=== PATIENT | female | born 1955 | race Caucasian/White ===

== ENCOUNTER → 2017-04-24 16:44 | Outpatient (CLI) | payer BC | END | disposition home or self-care (01) | LOC: D.MAMMO 16:15 | DX: Z12.31 Encounter for screening mammogram for malignant neoplasm of breast (principal) ==

== ENCOUNTER 2018-02-12 07:10 | Outpatient (CLI) | payer BC ==
[~2018-02-12] VITALS: Ht 152.4 cm; Wt 55.5 kg
--- NOTE | ~2018-02-12 | HEMODYNAMI ---
PATIENT:DAVID BYRD MEDICAL RECORD: [id number] : 57 LOCATION:D.CAT ADMISSION DATE: 02/12/18 Generatedon:02/12/20189:51 Patient name: DAVID BYRD Patient #: [id number] SSN: : 1955 Date of study: 02/12/2018 Page: Of Hemodynamic Procedure Report Patient Data Patient Demographics Procedure consent was obtained First Name: DAVID Gender: Female Last Name: CARSON : 1955 [facility] Initial: L Age: 62 year(s) Patient #: [id number] Race: Unknown Additional ID: [id number] Contact details [address]: [address] [place] [address] [place] State: [place] City: [place] Zip code: [address] Past Medical History Allergies Allergen Reaction Date Comments Reported Other 02/12/2018 Erythromycin,PCN,Sulfa, allergy Benadryl, Macrobid Admission Admission Data Admission Date: 02/12/2018 Admission Time: 7:10 Admit Source: Other Lab Results Lab Result Date: 02/12/2018 Lab Result Time: 7:35 Biochemistry Name Units Result Min Max BUN mg/dl 16 --(---*)-- 7 18 Creatinine mg/dl 0.9 --(-*--)-- 0.6 1.3 CBC Name Units Result Min Max Hematocrit % 41.7 -*(----)-- 42 54 Hemoglobin g/dl 13.8 --(*---)-- 13.5 17.5 Procedure Procedure Types Cath Procedure Diagnostic Procedure LHC LHC w/Coronaries Procedure Description Procedure Date Procedure Date: 02/12/2018 Procedure Start Time: 9:40 Procedure End Time: 9:49 Procedure Staff Name Function Corby Brand MD Performing Physician Elbert Patel RT Monitor Jihan Ruiz RT Scrub Maxim Patton RN Nurse Procedure Data Cath Procedure Fluoroscopy Diagnostic fluoroscopy Total fluoroscopy Time: 0.5 time: 0.5 min min Diagnostic fluoroscopy Total fluoroscopy dose: 67 dose: 67 mGy mGy Contrast Material Contrast Material Type Amount (ml) Isovue 300 19 Entry Location Entry Primary Successful Side Size Upsize Upsize Entry Closure Stanley ccessful Closure Location (Fr) 1 (Fr) 2 (Fr) Remarks Device Remarks Radial Right 6 Fr Mechanical artery Short Compression Estimated blood loss: 5 ml Diagnostic catheters Device Type Used For End Catheter Placement DIAGNOSTIC [place] 110cm 5 Procedure Fr catheter ([id number]) Procedure Complications No complications Procedure Medications Medication Administration Route Dosage Oxygen etCO2 Nasal cannula 2 l/min Heparin Flush Bag added to field 2 bags (1000units/500ml NS) 0.9% NaCl I.V. 100 ml/hr Radial Cocktail added to field 1 syringe (Verapomil 2mg/Nitro 400mcg/Heparin 1500units) Fentanyl I.V. 50 mcg Versed I.V. 1 mg Fentanyl I.V. 50 mcg Versed I.V. 1 mg Fentanyl I.V. 50 mcg Radial Cocktail I.A. 1 syringe (Verapomil 2mg/Nitro 400mcg/Heparin 1500units) Fentanyl I.V. 50 mcg Hemodynamics Rest HGB: 13.8 (g/dl) Heart Rate: 80 (bpm) Pressure Samples Time Site Value (mmHg) Purpose Heart Use Rate(bpm) 9:44 LV 74/46,49 Snapshot 95 Snapshots Pre Cath Intra NCS Post Cath Vital Signs Time Heart Resp SPO2 etCO2 NIBP (mmHg) Rhythm Pain Sedation Rate (ipm) (%) (mmHg) Status Level (bpm) 9:14:11 81 17 99 0 153/99(121) NSR 0 (11) 10(A) , No pain 9:18:47 77 16 98 0 168/95(130) NSR 0 (11) 10(A) , No pain 9:23:30 79 16 99 37.4 142/84(116) NSR 0 (11) 10(A) , No pain 9:28:06 80 17 97 44.9 131/77(101) NSR 0 (11) 10(A) , No pain 9:32:41 80 16 95 49.4 114/75(88) NSR 0 (11) 10(A) , No pain 9:37:09 82 16 98 44.1 121/89(104) NSR 0 (11) 9(A) , No pain 9:41:43 79 16 98 50.1 110/67(93) NSR 0 (11) 9(A) , No pain 9:46:45 100 17 95 31.4 129/82(100) NSR 0 (11) 9(A) , No pain 9:47:34 94 17 96 44.9 129/77(115) NSR 0 (11) 9(A) , No pain Medications Time Medication Route Dose Verified Delivered Reason Notes Effectiveness by by 9:19:31 Oxygen etCO2 2 l/min Deyanira Pan Per Nasal Salma Patton RN physician cannula 9:19:38 Heparin Flush added 2 bags Buffemely Christenseny used for Bag to Salma Patton servicer coin machines (1000units/500ml field NS) 9:19:47 0.9% NaCl I.V. 100 Buffie Maxim Per ml/hr Salma Patton RN physician 9:19:55 Radial Cocktail added 1 Buffemely Pan used for (Verapomil to syringe Salma Patton servicer coin machines 2mg/Nitro field 400mcg/Heparin 1500units) 9:34:39 Fentanyl I.V. 50 mcg Deyanira Pan for sedation Salma RN Abdi RN 9:34:46 Versed I.V. 1 mg Deyanira Pan for sedation Salma RN Abdi RN 9:35:59 Fentanyl I.V. 50 mcg Deyanira Pan for sedation Salma RN Abdi RN 9:36:05 Versed I.V. 1 mg Deyanira Pan for sedation Salma RN Abdi RN 9:38:44 Fentanyl I.V. 50 mcg Deyanira Pan for sedation Salma RN Abdi RN 9:42:49 Radial Cocktail I.A. 1 Buffemely Tavarez for (Verapomil syringe Salma Brand MD vasodilation 2mg/Nitro 400mcg/Heparin 1500units) 9:44:39 Fentanyl I.V. 50 mcg Corby Pan for sedation Cathie Patton fire prevention forester Log Time Note 8:50:37 Jihan Ruiz RT(R) sent for patient. Start room use. 8:52:22 Admit Source: Other 8:52:23 Diagnostic Cath status Elective 8:52:24 Time tracking: Regular hours (M-F 7:00 - 5:00) 8:52:27 Plan of Care:Hemodynamics will remain stable., Cardiac rhythm will remain stable., Comfort level will be maintained., Respiratory function will remain adequate., Patient/ family verbilizes understanding of procedure., Procedure tolerated without complication., Recovers from procedure without complications.. 8:52:38 H&P Date Dictated: 01/30/2018 Within 30 days and on chart., H&P Addendum completed by physician on day of procedure. (MUST COMPLETE FOR ALL OUTPATIENTS). 9:03:33 Lab Result : Creatinine 0.9 mg/dl 9::33 Lab Result : BUN 16 mg/dl 9::33 Lab Result : Hemoglobin 13.8 g/dl 9::33 Lab Result : Hematocrit 41.7 % 9:07:42 Patient received from Pre/Post Procedure Room to CCL 1 Alert and oriented. Tansferred to table in Supine position. 9:07:43 Warm blankets applied, and arron hugger turned on for patient comfort. 9:07:44 Correct patient and procedure confirmed by team. 9:07:45 Signed procedure consent form obtained from patient. 9:07:46 ECG and BP/O2 sat monitors applied to patient. 9:07:47 Pre-procedure instructions explained to patient. 9:07:48 Pre-op teaching completed and patient verbalized understanding. 9:07:48 Family in waiting room. 9:07:49 Patient NPO since Midnight. 9:13:21 Vital chart was started 9:19:31 Oxygen 2 l/min etCO2 Nasal cannula was administered by Maxim Patton RN; Per physician; 9:19:38 Heparin Flush Bag (1000units/500ml NS) 2 bags added to field was administered by Maxim Patton RN; used for procedure; 9:19:47 0.9% NaCl 100 ml/hr I.V. was administered by Maxim Patton RN; Per physician; 9:19:55 Radial Cocktail (Verapomil 2mg/Nitro 400mcg/Heparin 1500units) 1 syringe added to field was administered by Maxim Patton RN; used for procedure; 9:22:29 Baseline sample Acquired. 9:22:32 Rhythm: sinus rhythm 9:22:37 Full Disclosure recording started 9:23:20 Patient allergic to Other allergyErythromycin,PCN,Sulfa, Benadryl, Macrobid 9:23:21 Is the patient allergic to Iodine/contrast media? No. 9:23:23 Is patient on blood thinner?No 9:23:23 Patient diabetic? No. 9:23:27 Previous problem with sedation/anesthesia? No ? 9:23:28 Snore? Yes 9:23:29 Sleep apnea? No 9:23:30 Deviated septum? No 9:23:30 Opens mouth fully? Yes 9:23:31 Sticks out tongue? Yes 9:23:32 Airway obstruction? No ? 9:23:35 Dentures? No ? 9:23:38 Pre procedure: right dorsailis pedis pulse 2+ Normal; easily identifiable; not easily obliterated 9:23:40 Modified Mikey's test Ulnar < 7 seconds 9:23:41 Patient pain scale 0/10 ?. 9:23:53 IV patent on arrival in left wrist with 0.9% NaCl at KVO. 9:23:58 Lab results completed and on chart. 9:24:00 Right Radial & Right Groin area was prepped with chlora-prep and draped in sterile fashion 9:24:01 Alarms reviewed by R. N. 9:24:01 Sharps counted by scrub and verified by R.N. 9:24:06 Use device set Radial Dx or PCI 9:24:06 ACIST Syringe (06085) opened to sterile field. 9:24:07 Medline Cath Pack ([id number]) opened to sterile field. 9:24:07 Bag Decanter (2002S) opened to sterile field. 9:24:08 ACIST Hand Control (36097) opened to sterile field. 9:24:09 ACIST Manifold (94800) opened to sterile field. 9:24:09 Tegaderm 4 x 4 (1626W) opened to sterile field. 9:24:10 MBrace Wrist Support ([id number]) opened to sterile field. 9:24:10 SHEATH 6Fr Prelude Radial ([id number]) opened to sterile field. 9:24:11 DIAGNOSTIC WIRE .035 260cm J wire (847527) opened to sterile field. 9:28:30 Zero performed for pressure channel P1 9:33:57 Physician arrived 9:33:58 --------ALL STOP TIME OUT------ 9:33:58 Final Timeout: patient, procedure, and site verified with staff and physician. All members of the team are in agreement. 9:33:59 Right Radial & Right Groin site verified by team. 9:34:02 Physical assessment completed. ASA score P 2 - A patient with mild systemic disease as per Corby Brand MD. 9:34:04 Sedation plan: IV Moderate Sedation Medication:Versed, Fentanyl 9:34:39 Fentanyl 50 mcg I.V. was administered by Maxim Patton RN; for sedation; 9:34:46 Versed 1 mg I.V. was administered by Maxim Patton RN; for sedation; 9:35:59 Fentanyl 50 mcg I.V. was administered by Maxim Patton RN; for sedation; 9:36:05 Versed 1 mg I.V. was administered by Maxim Patton RN; for sedation; 9:38:44 Fentanyl 50 mcg I.V. was administered by Maxim Patton RN; for sedation; 9:40:08 Procedure started. 9:40:11 Local anesthetic to right radial artery with Lidocaine 2% by Corby Brand MD.INITIAL ACCESS ONLY 9:42:33 A 6 Fr Short sheath was inserted into the Right Radial artery 9:42:39 A DIAGNOSTIC [place] 110cm 5 Fr catheter ([id number]) was advanced over the wire and used for Procedure. 9:42:49 Radial Cocktail (Verapomil 2mg/Nitro 400mcg/Heparin 1500units) 1 syringe I.A. was administered by Corby Brand MD; for vasodilation; 9:44:24 LV gram done using SANCHEZ 9:44:28 Injector settings: Ml/sec: 5, Volume: 15, 9:44:30 LV hemodynamics recorded. 9:44:35 EF : 60 % 9:44:37 LCA angiography performed. 9:44:39 Fentanyl 50 mcg I.V. was administered by Maxim Patton RN; for sedation; 9:44:56 RCA angiography performed. 9:45:06 Catheter removed. 9:45:08 TR BAND Standard ([id number]) opened to sterile field. 9:45:30 Sheath removed intact; hemostasis achieved with Mechanical Compression to the Right Radial artery. 9:45:31 Procedure ended.(Physican Out) 9:47:01 Fluoroscopy time 00.50 minutes. 9:47:03 Fluoroscopy dose: 67 mGy 9:47:03 Flurop Dose total: 67 9:47:12 Contrast amount:Isovue 300 19ml. 9:47:14 Sharps counted by scrub and verified by R.N. 9:47:16 Insertion/operative site no bleeding no hematoma. 9:47:25 Post right radial artery:stable, soft, clean and dry 9:47:33 Post Procedure Pulses reassessed and unchanged 9:47:36 Post-procedure physical assessment completed. ASA score P 2 - A patient with mild systemic disease as per Corby Brand MD. 9:47:47 Post procedure rhythm: unchanged. 9:47:49 Estimated blood loss: 5 ml 9:47:51 Post procedure instruction explained to patient.Patient verbalizes understanding. 9:48:13 Patient needs reinforcement of post procedure teaching. 9:48:55 Procedure type changed to Cath procedure, Diagnostic procedure, LHC, LHC w/Coronaries 9:49:18 Procedure and supply charges have been captured, reviewed, submitted and are correct. 9:49:20 Procedure Complication : No complications 9:49:22 Vital chart was stopped 9:49:23 See physician's report for complete and final results. 9:49:24 Report given to Pre/Post Procedure Room. 9:49:26 Patient transfered to Pre/Post Procedure Room with Stretcher. 9:49:28 Procedure ended. 9:49:28 Full Disclosure recording stopped 9:49:34 End room use (Document Last) Device Usage Item Name Manufacture Quantity Catalog Number Hospital Part Current M inimal Lot# / Charge Number Stock Stock Serial# Code ACIST Syringe Acist 1 06586 [id number] 253978 511343 2 0 (69088) [employer] Medline Cath Cardinal 1 [id number] 754895 66425 498944 5 Pack Health ([id number]) Bag Decanter Microtek 1 2001S 854811 42601 162273 5 () Medical Inc. ACIST Hand Acist 1 01661 509260 791851 947504 5 Control (02701) [employer] Inc ACIST Manifold Acist 1 91457 691841 115212 528011 5 (72385) [employer] Inc Tegaderm 4 x 4 3M 1 1626W 099018 815572 389803 5 (1626W) MBrace Wrist Advanced 1 [id number] 570089 04763 807604 5 Support Vascular ([id number]) Dynamics SHEATH 6Fr Merit 1 [id number] 044511 168474 947590 5 Prelude Radial Medical ([id number]) DIAGNOSTIC WIRE [place] 1 871250 917067 932103 183436 3 0 .035 260cm J wire (645592) DIAGNOSTIC Terumo 1 40-4048 267906 816217 085393 5 [place] 110cm 5 Fr catheter (432073) TR BAND Terumo 1 [id number] 024940 809937 786955 4 0 Standard ([id number]) Signature Audit [place] Stage Time Signature Unsigned Intra-Procedure 02/12/2018 Elbert Patel 9:51:36 AM RT(R) Signatures Monitor : Elbert Patel RT Signature : Date : Time : [address] [address]
--- NOTE | ~2018-02-12 | OP ---
PATIENT NAME: DAVID BYRD MEDICAL RECORD: [id number] :57 LOCATION:D.CAT ADMISSION DATE: SURGEON: MUMTAZ BARNETT MD DATE OF OPERATION: 02/12/2018 PROCEDURES: 1. Left heart catheterization. 2. Selective coronary angiography. 3. Left ventriculogram. INDICATION: Chest pain compatible with angina and abnormal nuclear stress test. PROCEDURE IN DETAIL: After informed consent was obtained and after a detailed explanation of the risks, benefits as well as alternative therapies, the patient elected to proceed with angiogram and heart catheterization. The right radial area was prepped and draped in normal sterile fashion. Right radial artery was cannulated via modified Seldinger technique with placement of 5-Estonian sheath. All catheters exchanged through this sheath. FINDINGS: The left ventriculogram was performed in a standard 30-degree SANCHEZ view, reveals good cardiac wall motion throughout all segments. Overall ejection fraction estimated 60%. SELECTIVE CORONARY ANGIOGRAPHY: Left main, left anterior descending, left circumflex, and right coronary artery are all smooth-walled vessels with no angiographic evidence of coronary artery disease. OVERALL IMPRESSION: No angiographic evidence of coronary artery disease. Normal left heart pressures. Normal left ventricular systolic function. Chest pain is noncardiac in etiology. TRANSINT:[id number] Voice Confirmation ID: [id number] DOCUMENT ID: [id number] MUMTAZ BARNETT MD at 1823 CC: [id number] DICTATION DATE: 02/12/18 0950 COREMAKING SUPERVISOR: 02/12/18 1009 DEP CLI 02/12/18 [place] [id number] [place] [id number]
[2018-02-12] MEDS ORDERED: FROVATRIPTAN (07:29)
[2018-02-12] MEDS ORDERED: BAYER CHEWABLE81 MG PO (07:30)
[2018-02-12] MEDS ORDERED: NEXIUM40 MG PO (07:30)
[2018-02-12] MEDS ORDERED: MERIBIN5 MG PO (07:30)
[2018-02-12 07:37] VITALS: BP 141/84; Ht 152.4 cm; Wt 55.5 kg
[2018-02-12 07:54] LABS: ANION GAP 12.2 mmol/L (8-16); CALCIUM 9.7 mg/dL (8.5-10.1); CARBON DIOXIDE 27.8 mmol/L (21.0-32.0); CREATININE - SERUM 0.9 mg/dL (0.6-1.3)
[2018-02-12 07:56] LABS: BASOPHILS 0.8 % (0-2); HEMATOCRIT 41.7 % (36.0-48.0); HEMOGLOBIN 13.8 g/dL (12-16); IMMATURE GRANULOCYTES 0.3 % (0-5); LYMPHOCYTES 36.4 % (15-50); MCH 31.8 pg (26.0-34.0); MCHC 33.1 g/dL (31.0-37.0); MCV 96.1 fL (80.0-100.0); MEAN PLATELET VOLUME 8.9 fL (7.4-10.4); MONOCYTES 9.8 % (2-11); NEUTROPHILS 48.7 % (40-80); PLATELET COUNT 290 10x3/uL (130-400); RBC 4.34 10x6/uL (4.00-5.40); RDW 12.9 % (11.5-14.5)
== END 2018-02-12 12:25 | disposition home or self-care (01) ==
LOC: D.CATH 07:10
PROVIDERS: Internal Medicine Interventional Cardiology
DX: I20.9 Angina pectoris, unspecified (principal); R94.39 Abnormal result of other cardiovascular function study

== ENCOUNTER 2019-12-20 05:25 | Observation (INO) | payer BC ==
[~2019-12-20] VITALS: Ht 152.4 cm; Wt 54.5 kg
[~2019-12-20 05:25] MED LIST: BAYER CHEWABLE81 MG PO; FROVATRIPTAN; MERIBIN5 MG PO; NEXIUM40 MG PO
[2019-12-20 05:56] LABS: EOSINOPHILS 5.9 % (0-7); HEMOGLOBIN 13.3 g/dL (12-16); IMMATURE GRANULOCYTES 0.1 % (0-5); LYMPHOCYTES 28.5 % (15-50); MCH 31.6 pg (26.0-34.0); MCHC 32.4 g/dL (31.0-37.0); MCV 97.4 fL (80.0-100.0); MEAN PLATELET VOLUME 9.2 fL (7.4-10.4); MONOCYTES 11.2 % (2-11); NEUTROPHILS 53.3 % (40-80); PLATELET COUNT 312 10x3/uL (130-400); RBC 4.21 10x6/uL (4.00-5.40); RDW 13.3 % (11.5-14.5); WBC 7.2 10x3/uL (4.8-10.8)
[2019-12-20 06:33] LABS: CALC OSMOLALITY 287 mosm/kg (275-300); CALCIUM 8.9 mg/dL (8.5-10.1); CARBON DIOXIDE 27.3 mmol/L (21.0-32.0); CHLORIDE - SERUM 109 mmol/L (98-107); CREATININE - SERUM 0.8 mg/dL (0.6-1.3); GLUCOSE 102 mg/dL (74-106); POTASSIUM - SERUM 3.9 mmol/L (3.5-5.1); SODIUM 143 mmol/L (136-145); UREA NITROGEN 21 mg/dL (7-18); eGFR NON AFRICAN AMERICAN 77 mL/min (90-120)
[2019-12-20 06:38] VITALS: BP 124/67
[2019-12-20 06:47] LABS: ALBUMIN 3.4 g/dL (3.4-5.0); ALKALINE PHOSPHATASE 65 U/L (30-120); ALT (SGPT) 12 U/L (10-68); BILIRUBIN - TOTAL 0.35 mg/dL (0.2-1.3); C-REACTIVE PROTEIN 0.6 mg/dL (0.0-0.9); LIPASE 193 U/L (73-393); PRO BNP 63 pg/mL (0-125); PROTEIN - SERUM 6.5 g/dL (6.4-8.2)
[2019-12-20 06:48] LABS: TROPONIN-I < 0.017 ng/mL (0.000-0.060)
[2019-12-20 06:49] LABS: APTT 24.7 SECONDS (22.8-39.4); INR 0.87 (0.85-1.17); PROTIME 11.8 SECONDS (11.6-15.0)
[2019-12-20 07:15] VITALS: BP 115/67
[2019-12-20] MEDS ORDERED: LEXAPRO10 MG PO (08:48)
[2019-12-20 09:56] VITALS: BP 121/75; BMI 23.4
[2019-12-20 12:26] VITALS: Ht 152.4 cm; Wt 54.5 kg
--- NOTE | 2019-12-20 12:38 | NUR ---
OFFERED PT REFERRAL TO TOBACCO QUITLINE. SHE DECLINED.
[2019-12-20 12:45] VITALS: BP 105/73
--- NOTE | 2019-12-20 13:01 | NUR ---
IV AND TELEMETRY DCD. DC PLANS GIVEN. UNDERSTANDING VOICED.
--- NOTE | 2019-12-20 13:31 | NUR ---
ESCORTED TO CAR BY W/C.
== END 2019-12-20 13:31 | disposition home or self-care (01) ==
LOC: D.ER 05:25 → D.M2 05:42 → OBSVTIME 05:42 → D.M2 13:31
PROVIDERS: Family Medicine; ADMIT Family Medicine; ATTEND Family Medicine
DX: R07.9 Chest pain, unspecified (principal); F41.9 Anxiety disorder, unspecified; R10.9 Unspecified abdominal pain; R11.10 Vomiting, unspecified; F17.200 Nicotine dependence, unspecified, uncomplicated